=== PATIENT | female | born 1975 | race Caucasian/White ===

== ENCOUNTER 2019-05-06 14:58 | Emergency (ER) | payer MEDICAID ==
[2019-05-06] MEDS ORDERED: SODIUM CHLORIDE 0.9% 1,000 ML IV ONE (17:02)
[2019-05-06] MEDS ORDERED: METOCLOPRAMIDE 10 MG/2 ML VIAL IVP STA (17:03)
[2019-05-06] MEDS ORDERED: KETOROLAC 30 MG/ML VIAL IVP STA (17:03)
--- NOTE | 2019-05-06 17:05 | ED Physician Documentation ---
History of Present Illness - Stated complaint Stated Complaint: MIGRAINE/ABD PX - Chief complaint Chief Complaint: General - History obtained from History obtained from: Patient - History of Present Illness Timing: Other (43-year-old woman visiting from [place] with 4 days of frontal throbbing headache and light sensitivity consistent with prior migraines, feels she also noticed that while she coughed the other day she developed sudden right lower quadrant pain that is been persistent associated with vomiting and diarrhea since that same time. Pain is stabbing. She denies vaginal discharge. No blood in the diarrhea. No sick contacts.) Review of Systems Ten Systems: 10 systems reviewed and negative Constitutional: denies: Fever, Chills Cardiac: denies: Chest pain / pressure, Palpitations Respiratory: denies: Dyspnea, Cough GI: reports: Abdominal Pain, Nausea, Vomiting, Diarrhea PD PAST MEDICAL HISTORY - Past Medical History Cardiovascular: None Musculoskeletal: Fibromyalgia - Past Surgical History Past Surgical History: Yes /[employer]: Tubal ligation, Hysterectomy - Present Medications Home Medications: Ambulatory Orders Medication Instructions Recorded Confirmed LORazepam [Lorazepam] 1 mg PO DAILY 06/23/15 05/29/16 Naproxen 375 mg PO BID #20 tablet 03/14/16 05/29/16 LORazepam [Ativan] 0.5 mg PO TID #15 tablet 05/29/16 dexAMETHasone [Decadron] 4 mg PO DAILY #5 tablet 05/29/16 SUMAtriptan [Imitrex] 25 mg PO BID PRN #10 tablet 05/06/19 - Allergies Allergies/Adverse Reactions: Allergies Allergy/AdvReac Type Severity Reaction Status Date / Time cephalexin monohydrate * Allergy Intermediate Rash Verified 05/06/19 15:08 [From Keflex] doxycycline Allergy Intermediate Rash Verified 05/06/19 15:08 morphine AdvReac Intermediate swelling Verified 05/06/19 15:08 - Social History Does the pt smoke?: No Smoking Status: Never smoker Does the pt drink ETOH?: No Does the pt have substance abuse?: No - Immunizations Immunizations are current?: Yes - POLST Patient has POLST: No PD ED PE NORMAL - Vitals Vital signs reviewed: Yes - General General: Alert and oriented X 3, No acute distress - HEENT HEENT: PERRL, EOMI - Neck Neck: Supple, no meningeal sign, No bony TTP - Cardiac Cardiac: RRR, No murmur - Respiratory Respiratory: No respiratory distress, Clear bilaterally - Abdomen Abdomen: Other (Mild right lower quadrant tenderness without surgical signs, no obvious hernia mass.) - Back Back: No CVA TTP, No spinal TTP - Derm Derm: Normal color, Warm and dry - Neuro Neuro: Alert and oriented X 3, Normal speech Results - Vitals Vitals: Vital Signs - 24 hr 05/06/19 05/06/19 05/06/19 15:06 16:57 18:03 Temperature 36.0 C L Heart Rate 73 80 71 Respiratory 19 16 73 H Rate Blood Pressure 168/96 H 176/124 H 147/100 H O2 Saturation 97 95 97 Oxygen O2 Source Room air - Labs Labs: Laboratory Tests 05/06/19 05/06/19 05/06/19 17:09 17:09 17:15 WBC 8.3 RBC 4.53 Hgb 13.0 Hct 39.7 MCV 87.6 MCH 28.7 MCHC 32.7 RDW 13.2 Plt Count 224 MPV 11.2 H Neut # (Auto) 5.1 Lymph # (Auto) 2.4 [place] # (Auto) 0.5 Eos # (Auto) 0.2 Baso # (Auto) 0.1 Absolute Nucleated RBC 0.00 Nucleated RBC % 0.0 Sodium 141 Potassium 3.9 Chloride 104 Carbon Dioxide 27 Anion Gap 10.0 BUN 18 Creatinine 1.0 Estimated GFR (MDRD) 61 L Glucose 99 Calcium 9.4 Total Bilirubin 0.7 AST 19 ALT 20 Alkaline Phosphatase 58 Total Protein 7.7 Albumin 4.3 Globulin 3.4 Albumin/Globulin Ratio 1.3 Lipase 38 Urine Color YELLOW Urine Clarity HAZY Urine pH 7.5 Ur Specific [place] 1.015 Urine Protein NEGATIVE Urine Glucose (UA) NEGATIVE Urine Ketones 15 H Urine Occult Blood NEGATIVE Urine Nitrite NEGATIVE Urine Bilirubin NEGATIVE Urine Urobilinogen 0.2 (NORMAL) Ur Leukocyte Esterase NEGATIVE Urine RBC 0-5 Urine WBC 0-3 Ur Squamous Epith Cells MOD Squamous H Amorphous Sediment Few Urine Bacteria Few Urine Mucus Few Strands Ur Microscopic Review INDICATED Urine Culture Comments NOT INDICATED - Rads (name of study) CT A/P Radiology: EMP read contemporaneously (normal) PD MEDICAL DECISION MAKING - ED course ED course: 43-year-old woman presents with 2 complaints, first a migraine, nothing in the history or physical to suggest something along the lines of subarachnoid hemorrhage or meningitis. This will be treated with Reglan, Toradol, Benadryl. Secondly she has right lower quadrant pain that started while coughing. No obvious hernia mass but this is still in the differential, kidney stone which she has a history of, or ripped adhesions are a possibility. Will obtain a CT. After the administration of Toradol, Reglan, Benadryl her headache is gone. She did have some akathisia with this. Lab work was unremarkable. Departure - Departure Disposition: 01 Home, Self Care Clinical Impression: Migraine Qualifiers: Migraine type: with aura Status migrainosus presence: without status migrainosus Intractability: not intractable Qualified Code(s): G43.109 - Migraine with aura, not intractable, without status migrainosus Abdominal pain Qualifiers: Abdominal location: right lower quadrant Qualified Code(s): R10.31 - Right lower quadrant pain Condition: Good Record reviewed to determine appropriate education?: Yes Instructions: ED Abdominal Pain Unkn Cause, ED Headache Migraine Prescriptions: SUMAtriptan [Imitrex] 25 mg PO BID PRN #10 tablet PRN Reason: Headache Comments: Your CAT scan and labs are normal. Follow-up with your doctor on return home, return for new worsening symptoms. Return for fever.
[2019-05-06 17:15] LABS: BASOPHILS # (AUTO) 0.1 10^3/uL (0.0-0.1); BASOPHILS % (AUTO) 0.8 %; EOSINOPHILS # (AUTO) 0.2 10^3/uL (0.0-0.7); EOSINOPHILS % (AUTO) 1.9 %; LYMPHOCYTES # (AUTO) 2.4 10^3/uL (1.5-3.5); LYMPHOCYTES % (AUTO) 29.5 %; MEAN CORPUSCULAR HEMOGLOBIN 28.7 pg (27.0-31.0); MEAN CORPUSCULAR HGB CONC 32.7 g/dL (32.0-36.0); MEAN CORPUSCULAR VOLUME 87.6 fL (81.0-99.0); MEAN PLATELET VOLUME 11.2 fL (7.9-10.8); MONOCYTES # (AUTO) 0.5 10^3/uL (0.0-1.0); MONOCYTES % (AUTO) 6.1 %; NEUTROPHILS # (AUTO) 5.1 10^3/uL (1.5-6.6); NEUTROPHILS % (AUTO) 61.3 %; PLT - PLATELET COUNT 224 10^3/uL (130-450); RED BLOOD COUNT 4.53 10^6/uL (4.20-5.40); RED CELL DISTRIBUTION WIDTH 13.2 % (12.0-15.0); WHITE BLOOD COUNT 8.3 x10^3/uL (4.8-10.8)
[2019-05-06 17:26] LABS: ALBUMIN 4.3 g/dL (3.2-5.5); ALBUMIN/GLOBULIN RATIO 1.3 (1.0-2.2); BILIRUBIN,TOTAL 0.7 mg/dL (0.2-1.0); CALCIUM 9.4 mg/dL (8.5-10.3); TOTAL PROTEIN 7.7 g/dL (6.7-8.2)
[2019-05-06] MEDS ORDERED: IOVERSOL 320 100 ML VIAL IVP ONE ×2 (17:28→17:51)
[2019-05-06 17:55] LABS: BILIRUBIN,URINE NEGATIVE (NEGATIVE); GLUCOSE, URINE (UA) NEGATIVE (NEGATIVE); KETONES,URINE (UA) 15 mg/dL (NEGATIVE); LEUKOCYTE ESTERASE, URINE NEGATIVE (NEGATIVE); NITRITE,URINE NEGATIVE (NEGATIVE); OCCULT BLOOD,URINE NEGATIVE (NEGATIVE); PH,URINE 7.5 PH (5.0-7.5); PROTEIN,URINE NEGATIVE (NEGATIVE); UROBILINOGEN,URINE 0.2 (NORMAL) E.U./dL (NORMAL)
[2019-05-06 17:58] LABS: CLARITY,URINE HAZY (CLEAR)
[2019-05-06 18:06] LABS: AMORPHOUS SEDIMENT,UR Few /LPF; BACTERIA,URINE Few /HPF (None Seen); MUCUS,URINE Few Strands; RBC,URINE 0-5 /HPF (0-5); SQUAMOUS EPITHELIAL CELL,UR MOD Squamous (<= Few)
--- NOTE | 2019-05-06 18:14 | CT Report ---
Reason: IV only, RLQ pain Procedure Date: 05/06/2019 Accession Number: [id number] / [id number] Procedure: CT - Abdomen/Pelvis W CPT Code: FULL RESULT: EXAM: CT ABDOMEN AND PELVIS EXAM DATE: 05/06/2019 05:50 PM. CLINICAL HISTORY: Right lower quadrant pain COMPARISONS: None. TECHNIQUE: Routine helical CT imaging was performed through the abdomen and pelvis. IV contrast: OPTI 320 100ML. Enteric contrast: No. Reconstructions: Coronal and sagittal. In accordance with CT protocol optimization, one or more of the following dose reduction techniques were utilized for this exam: automated exposure control, adjustment of mA and/or KV based on patient size, or use of iterative reconstructive technique. FINDINGS: Lung Bases: Unremarkable. Liver: Mildly fatty liver. No masses. Gallbladder/Bile Ducts: Unremarkable. Spleen: Normal. Pancreas: Normal. Adrenal Glands: Normal. Kidneys: Normal. No masses or hydronephrosis. Peritoneal Cavity/Bowel: Normal. No free fluid, free air or adenopathy. No masses or acute inflammatory process. The appendix is well seen and normal. Pelvic Organs: The bladder and pelvic organs are within normal limits. Vasculature: No aneurysms or other significant abnormality. Bones: No significant abnormality. Other: None. IMPRESSION: No acute findings abdomen and pelvis CT. No etiology for right lower quadrant pain is seen. Specifically the appendix appears normal. [facility]
[2019-05-06 18:47] VITALS: BP 161/98
== END 2019-05-06 18:49 | disposition home or self-care (01) ==
LOC: ED 14:58
DX: G43.109 Migraine with aura, not intractable, without status migrainosus (principal); R10.31 Right lower quadrant pain
CPT/HCPCS: 36415; 74177; 80053; 81001; 83690; 85025; 96374; 99284; J2765; Q9967; 81003; 87086